=== PATIENT | male | born 2000 | race African-American/Black ===

== ENCOUNTER 2022-01-08 21:57 | Emergency (ER) | payer OTHER, SELFPAY ==
[2022-01-08 22:08] VITALS: BP 105/66; PULSE 143; RESP 16; TEMP 38.3; O2SAT 94; BMI 22.5
[2022-01-08 22:40] VITALS: PULSE 153; RESP 22; O2SAT 96
[2022-01-08] MEDS: Albuterol 2.5 MG/3 ML VIAL.NEB. INHALATION (22:40)
[2022-01-08] MEDS: Acetaminophen 500 MG Tablet 1000 MG PO (22:47)
[2022-01-08] MEDS: 0.9% Normal Saline 1,000 ML 999 ML IV (22:55)
--- NOTE | 2022-01-08 22:56 | EDS_ITS ---
HPI History of Present Illness Chief Complaint: General Illness Detail of Chief Complaint: resp illness Informant: patient Onset/Context/Timing Onset: Weeks (1) Context: Gradual Onset Timing: Continuous Narrative Narrative: Patient has been ill for about 1 week now with cough, congestion, headache migraine, fevers and chills, myalgias, malaise. He feels like there is rattling in his chest when he breathes, he states sometimes he has some mild dyspnea because of that. No GI symptoms. No earache, he had a sore throat but it resolved. He has had several rapid COVID test that were negative as well as a rapid influenza today that was negative. He is a [employer] and otherwise healthy. [facility] Medical History no medical history no medical history Home Medications azithromycin 250 mg tablet 250 mg PO DAILY #4 TABLETS 01/09/22 [Rx Last Taken Unknown] Allergy/AdvReac Type Severity Reaction Status Date / Time No Known Allergies Allergy Verified 01/08/22 22:14 Surgical History no surgical history no surgical history Social History Smoking Status: Never smoker [facility] ED Constitutional Constitutional ED: Reports body ache(s), chills, fatigue, fever(s) and malaise Eyes Eyes: Denies change in vision or diplopia ENT ENT ED: Reports headache(s) and sore throat; Denies rhinorrhea Cardiovascular Cardiovascular: Denies chest pain or palpitations Respiratory/Chest Respiratory/Chest: Reports as per HPI, chest congestion, cough and dyspnea Gastrointestinal Gastrointestinal: Denies abdominal pain, diarrhea, nausea or vomiting Genitourinary Genitourinary ED: Denies dysuria or hematuria Musculoskeletal Musculoskeletal: Denies back pain or neck pain Integumentary Denies abscess or rash Neurologic Neurologic: Reports headache(s); Denies paresthesias or weakness Psychiatric Psychiatric: Denies anxiety or suicidal thoughts EXAM Physical Exam Const Vital Signs: 01/08/22 22:08 01/08/22 22:40 01/08/22 22:40 Temperature 100.9 F H Temperature Source Temporal Pulse Rate 143 H 153 H Respiratory Rate 16 22 H 22 H Respiratory Effort Non-Labored Short of Breath Respiratory Depth Shallow Respiratory Pattern Tachypnea Tachypnea Blood Pressure 105/66 Blood Pressure Mean 79 Pulse Ox 94 96 Oxygen Delivery Method Room Air Room Air 01/08/22 23:12 01/09/22 00:22 Temperature Temperature Source Pulse Rate 105 H Respiratory Rate 19 H Respiratory Effort Normal Non-Labored Respiratory Depth Respiratory Pattern Normal Blood Pressure 109/61 Blood Pressure Mean 77 Pulse Ox 97 Oxygen Delivery Method Room Air Positive well nourished and well developed Constitutional Narrative: Ill-appearing but in no distress General Appearance ED: well developed and NAD HEENT Reports moist mucous membranes HEENT Narrative: Posterior oropharynx clear. No trismus. normocephalic and atraumatic Eyes PERRL and EOMs intact bilaterally Neck full ROM, no lymphadenopathy and supple Chest Wall inspection of chest normal and palpation of chest normal Resp normal respiratory effort Resp Narrative: Possibly some rhonchi in the left base but inconsistent Effort and Inspection: able to speak in complete sentences Cardio regular rate, regular rhythm and no murmurs GI non-tender and non-distended Auscultation: normoactive bowel sounds Palpation: soft Back/Spine no CVA tenderness General Back: other FROM Extremity normal to inspection General Extremety ED: Negative for edema, pulses abnormal or tenderness General Extremity: Negative for edema or pulses abnormal Neuro oriented x3, CN's II-XII intact bilaterally and no sensory deficits noted Sensorium / Orientation: awake and alert Motor Exam: strength 5/5 throughout Psych mental status grossly normal Skin no rashes or lesions noted and no wounds MDM MDM MDM Narrative Medical decision making narrative: Patient with bilateral perihilar infiltrates consistent with the possibility of pneumonia, however he has leukopenia which is more consistent with COVID. He has had several negative rapid test. The rest of his work-up is normal including his lactic acid. Patient's symptoms are consistent with COVID. Therefore I am sending a PCR and treat him with antibiotics empirically until that comes back. His oxygen saturations are adequate on room air. Patient was observed and had normal vital signs without any clinical events throughout his stay. His PCR COVID returned negative. We ambulated him and he did not become hypoxic. Leukopenia may be due to viral pneumonia. Regardless we will treat him with antibiotics specifically to cover atypicals, gave him Rocephin and Zithromax here so we will give him a prescription for the rest of his [facility], close outpatient follow-up for clinical reevaluation at the [facility] advised and fever control, hydration in addition to the antibiotics. Discussed with parents and patient at length. Lab Data Attestation: I reviewed the patient's lab results. Labs: Laboratory Results - last 24 hr 11/02/22 11/02/22 11/02/22 22:55 22:55 22:55 WBC 3.9 L RBC 5.25 Hgb 14.8 Hct 43.0 MCV 81.9 MCH 28.2 MCHC 34.4 RDW Std Deviation 37.7 RDW Coeff of Hilda 12.6 Plt Count 161 MPV 9.2 Immature Gran % (Auto) 0.300 Neut % (Auto) 78.4 H Lymph % (Auto) 13.1 L Bremer % (Auto) 7.7 Eos % (Auto) 0.0 Baso % (Auto) 0.5 Absolute Neuts (auto) 3.0 Absolute Lymphs (auto) 0.51 L Nucleated RBC % 0 Diff Path Review May foll Sodium 136 Potassium 4.1 Chloride 102 Carbon Dioxide 26.0 Anion Gap 8 BUN 14 Creatinine 1.12 Estim Creat Clear Calc 124.87 Est GFR (MDRD) Af Amer 107 Est GFR (MDRD) Non-Af 88 BUN/Creatinine Ratio 12.5 Glucose 110 H Lactic Acid 1.1 Calcium 9.1 COVID-19 (JUDI) 01/08/22 23:57 WBC RBC Hgb Hct MCV MCH MCHC RDW Std Deviation RDW Coeff of Hilda Plt Count MPV Immature Gran % (Auto) Neut % (Auto) Lymph % (Auto) Bremer % (Auto) Eos % (Auto) Baso % (Auto) Absolute Neuts (auto) Absolute Lymphs (auto) Nucleated RBC % Diff Path Review Sodium Potassium Chloride Carbon Dioxide Anion Gap BUN Creatinine Estim Creat Clear Calc Est GFR (MDRD) Af Amer Est GFR (MDRD) Non-Af BUN/Creatinine Ratio Glucose Lactic Acid Calcium COVID-19 (JUDI) Not Detected Radiography Chest X-Ray - ED: 2 View, Read by ED Physician, Right Infiltrate and Left Infiltrate Diagnostic Testing: Clinical Impression(s) from Imaging Studies Chest X-Ray 01/08/22 23:00 IMPRESSION: Bilateral perihilar infiltrates may be consistent with pneumonia or viral pneumonitis. Electronically Signed: Raysa Arnold MD at 23:18 EDT , Discharge Plan Triage Chief Complaint: General Illness ED Provider: Yovany Mendiola Dx/Rx/DC Orders Clinical Impression: Pneumonia Instructions: ED Pneumonia (Adult) Prescriptions: New azithromycin 250 mg tablet 250 mg PO DAILY Qty: 4 0RF Primary Care Provider: Care Physician,No Primary Referrals: [facility] [Group of Physicians] - 2 Days (For reevaluation) Care Physician,No Primary [Primary Care Provider] - Activity Restrictions/Additional Instructions: At the first dose of antibiotic tonight around bedtime, 01/09, then every night thereafter until finished. Disposition Disposition: Home, Self Care
--- NOTE | 2022-01-08 23:00 | RAD_ITS ---
STUDY: X-RAY CHEST REASON FOR EXAM: Male, 21 years old. cough, fever PT C/O PERSISTENT COUGH, WEAKNESS, DIZZINESS , FEVER AND MIGRAINE HOBBS. PT TESTED FOR FLU T COVID AT [facility] THAT WAS NEGATIVE YESTERDAY TECHNIQUE: PA and lateral. COMPARISON: None. FINDINGS: LUNGS: Bilateral patchy predominantly perihilar infiltrates. Peribronchial thickening. No pneumothorax. MEDIASTINUM: Unremarkable. CARDIAC SILHOUETTE: Not enlarged. BONES AND SOFT TISSUES: No acute abnormalities. RAD/Chest PA and Lateral IMPRESSION: Bilateral perihilar infiltrates may be consistent with pneumonia or viral pneumonitis. Electronically Signed: Raysa Arnold MD at 23:18 EDT ,
[2022-01-08 23:13] LABS: Absolute Lymphocyte Count 0.51 X10^3/uL (0.83-4.51); Basophil# 0.02 X10^3/uL; Basophil% 0.5 % (0-1); Hemoglobin 14.8 g/dL (13.0-16.5); Lymphocyte # 0.51 X10^3/ul (0.83-4.51); Lymphocyte % 13.1 % (19-41); Mean Corp Hgb Conc 34.4 g/dL (32-36); Mean Corpuscular Hgb 28.2 pg (27.0-32.0); Mean Corpuscular Volume 81.9 fL (80-94); Mean Platelet Vol. 9.2 fl (6.2-12.0); Monocyte% 7.7 % (0-10); NRBC Flagged by Analyzer 0 % (0-5); Neutrophil # 3.04 X10^3/uL (2.7-7.7); Neutrophil % 78.4 % (47-70); POSITIVE DIFFERENTIAL YES; Platelet Count 161 K/mm3 (150-450); RBC Distribution Width CV 12.6 % (11.6-14.6); RBC Distribution Width SD 37.7 fl (35.1-43.9); Red Blood Count 5.25 M/mm3 (4.6-6.2); White Blood Count 3.9 K/mm3 (4.4-11.0)
[2022-01-08 23:15] LABS: Differential Indicated SCAN CRITERIA MET
[2022-01-08 23:26] LABS: Anion Gap 8 (5-15); BUN 14 mg/dL (7-18); BUN/Creat Ratio 12.5 RATIO (10-20); Calcium,Total 9.1 mg/dL (8.5-10.1); Chloride 102 mmol/L (98-107); Creatinine, Serum 1.12 mg/dL (0.70-1.30); EST Glomerular Filtration Rate 88 mL/min (>60); Est Glom Filt Rate - Afr Amer 107 mL/min (>60); Estimated Creatinine Clearance 124.87 ml/min; Glucose 110 mg/dL (74-106); Potassium 4.1 mmol/L (3.5-5.1); Sodium Level 136 mmol/L (136-145)
[2022-01-08 23:35] LABS: Lactic Acid 1.1 mmol/L (0.4-1.9)
[2022-01-09] MEDS: Ceftriaxone 1 GM/50 ML BAG IV (00:08)
[2022-01-09 00:22] VITALS: BP 109/61; PULSE 105; RESP 19; O2SAT 97
[2022-01-09 03:42] VITALS: O2SAT 98
--- NOTE | 2022-01-09 04:06 | ED.RN ---
SEE DOWN TIME CHARTING FROM [phone]
[2022-01-09 04:11] VITALS: BP 108/62; PULSE 97; RESP 22; TEMP 37.2; O2SAT 98
[2022-01-09 15:31] LABS: Pathologist Review Reviewed
== END 2022-01-09 04:32 | disposition home or self-care (01) ==
PROVIDERS: Emergency Provider Emergency Medicine; Visit Provider Emergency Medicine
DX: J18.9 Pneumonia, unspecified organism (principal)
CPT/HCPCS: 36415; 71046; 80048; 83605; 85025; 87040; 87635; 94640; 96365; 99251; 99285; J7030; G0463; U0003; U0005